=== PATIENT | male | born 1930 | race Caucasian/White ===

== ENCOUNTER → 2018-10-30 | Outpatient (CLI) | payer OTHER ==
[~2018-10-30] VITALS: Ht 180.3 cm; Wt 90.7 kg
[~2018-10-30] MED LIST: ALTACE10 MG PO; AMANTADINE100 M1 PO; AQUAPHOR85 GM TOP; ASPIR 8181 MG PO; AZILECT1 MG PO; CARBIDOPA-LEVO1 EAC2 PO; COLACE100 MG PO; FLOMAX0.4 MG PO; FLORASTOR250 MG PO; LASIX 40 MG TAB40 M2 PO; PLAVIX 75 MG TA75 M1 PO; ROPINIROLE HCL2 MG PO; SENNA8.6 MG PO; SPIRONOLACTONE25 M1 PO; VITAMIN D2000 UNIT PO
[2018-10-30 09:46] VITALS: BP 135/72
== END | disposition home or self-care (01) ==
LOC: SPEC 09:09
DX: I70.238 Atherosclerosis of native arteries of right leg with ulceration of other part of lower leg (principal); L97.919 Non-pressure chronic ulcer of unspecified part of right lower leg with unspecified severity; I70.1 Atherosclerosis of renal artery; I10 Essential (primary) hypertension; I25.10 Atherosclerotic heart disease of native coronary artery without angina pectoris; G20 Parkinson's disease; Z98.890 Other specified postprocedural states; Z87.891 Personal history of nicotine dependence; Z88.0 Allergy status to penicillin; Z88.8 Allergy status to other drugs, medicaments and biological substances; Z91.040 Latex allergy status; Z79.82 Long term (current) use of aspirin; Z79.899 Other long term (current) drug therapy

== ENCOUNTER → 2018-11-02 | Outpatient (CLI) | payer OTHER | LOC: HYPER | DX: L97.812 Non-pressure chronic ulcer of other part of right lower leg with fat layer exposed (principal); I73.9 Peripheral vascular disease, unspecified; G20 Parkinson's disease; R13.12 Dysphagia, oropharyngeal phase; R60.0 Localized edema; B35.1 Tinea unguium; Z87.891 Personal history of nicotine dependence ==